=== PATIENT | male | born 1995 | race Caucasian/White ===

== ENCOUNTER 2018-10-04 14:13 | Emergency (ER) | payer BC, OTHER ==
[2018-10-04] MEDS ORDERED: busPIRone 5 MG Tab PO ONE (20:01)
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
== END 2018-10-04 21:42 | disposition home or self-care (01) ==
LOC: FB.ED 14:13
DX: F41.9 Anxiety disorder, unspecified (principal); F19.10 Other psychoactive substance abuse, uncomplicated; F17.210 Nicotine dependence, cigarettes, uncomplicated; Z79.899 Other long term (current) drug therapy
CPT/HCPCS: 99284; A9270

== ENCOUNTER 2018-10-22 00:36 | Emergency (ER) | payer SELFPAY ==
[2018-10-22] MEDS ORDERED: Ketorolac 60 MG/2 ML SDV IM ONE (00:54)
[2018-10-22] MEDS ORDERED: traMADol 50 MG Tab PO ONE (00:54)
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
== END 2018-10-22 01:52 | disposition home or self-care (01) ==
LOC: FB.ED 00:36
DX: S20.212A Contusion of left front wall of thorax, initial encounter (principal); W10.9XXA Fall (on) (from) unspecified stairs and steps, initial encounter
CPT/HCPCS: 71101; 96372; 99283; A9270; J1885